=== PATIENT | female | born 1960 | race Caucasian/White ===

== ENCOUNTER 2020-11-05 14:20 | Emergency (ER) | payer OTHER ==
[2020-11-05] MEDS ORDERED: NAPROXEN500 MG PO (16:09)
== END 2020-11-05 16:24 | disposition home or self-care (01) ==
LOC: FER 14:20
DX: M72.2 Plantar fascial fibromatosis (principal); M77.8 Other enthesopathies, not elsewhere classified; I10 Essential (primary) hypertension; E78.5 Hyperlipidemia, unspecified; F17.210 Nicotine dependence, cigarettes, uncomplicated; Z85.3 Personal history of malignant neoplasm of breast; Z85.819 Personal history of malignant neoplasm of unspecified site of lip, oral cavity, and pharynx; Z85.72 Personal history of non-Hodgkin lymphomas; Z79.899 Other long term (current) drug therapy
CPT/HCPCS: 73620; 96372; J1100; J1885

== ENCOUNTER 2022-03-29 10:50 | Emergency (ER) | payer OTHER ==
[~2022-03-29 10:50] MED LIST: NAPROXEN500 MG PO
[2022-03-29] MEDS ORDERED: NAPROXEN500 MG PO ×2 (12:20→12:26)
== END 2022-03-29 12:38 | disposition home or self-care (01) ==
LOC: FER 10:50
DX: M25.571 Pain in right ankle and joints of right foot (principal); Z88.2 Allergy status to sulfonamides; F17.200 Nicotine dependence, unspecified, uncomplicated; Z88.8 Allergy status to other drugs, medicaments and biological substances; Z28.310 Unvaccinated for COVID-19
CPT/HCPCS: 73610